=== PATIENT | female | born 1955 | race Caucasian/White ===

== ENCOUNTER 2018-05-14 20:30 | Inpatient (IN) | payer OTHER ==
[~2018-05-14] VITALS: Ht 160 cm; Wt 45.8 kg
[2018-05-14 20:51] LABS: BASOPHILS % (AUTO) 0.5 % (0.0-2.0); EOSINOPHILS % (AUTO) 2.3 % (1.0-6.0); HEMATOCRIT 37.3 % (36-46); HEMOGLOBIN 12.4 g/dL (12.0-16.0); LYMPHOCYTES # (AUTO) 1.7 K/uL (1.0-4.8); LYMPHOCYTES % (AUTO) 35.3 % (22.0-44.0); MEAN CORPUSCULAR HEMOGLOBIN 30.8 pg (26.0-34.0); MEAN CORPUSCULAR HGB CONC 33.2 G/dL (31.0-37.0); MEAN CORPUSCULAR VOLUME 93 fL (80-100); MONOCYTES # (AUTO) 0.5 K/uL (0.1-1.0); MONOCYTES % (AUTO) 10.6 % (2.0-9.0); NEUTROPHILS # (AUTO) 2.5 K/uL (1.8-7.7); NEUTROPHILS % (AUTO) 51.3 % (40.0-70.0); PLATELET COUNT (AUTO) 179 K/uL (150-450); RED BLOOD CELL COUNT(AUTO) 4.01 MIL/uL (4.00-5.20); RED CELL DISTRIBUTION WIDTH 12.4 % (11.5-14.5)
[2018-05-14] MEDS ORDERED: IOVERSOL 320 MG/ML 100 ML VIAL ONE (20:54)
[2018-05-14 21:04] LABS: ANION GAP 2 mmol/L (8-16); CALCIUM, TOTAL 9.2 mg/dL (8.8-10.5); CARBON DIOXIDE 35 mmol/L (22-29); CHLORIDE 105 mmol/L (98-107); CREATININE 0.66 mg/dL (0.60-1.30); GLOMERULAR FILTR. RATE CALC > 60 mL/min (>60); GLUCOSE,RANDOM 84 mg/dL (70-110); POTASSIUM 3.4 mmol/L (3.5-5.1); SODIUM SERUM 142 mmol/L (136-145); UREA NITROGEN, BLOOD 22 mg/dL (7-18)
[2018-05-14 21:06] LABS: INR 1.1 (0.9-1.1); PROTHROMBIN TIME 11.3 SEC (9.4-11.6)
[2018-05-14 21:10] LABS: ALANINE AMINOTRANSFERASE 18 U/L (12-78); ALBUMIN 3.3 g/dL (3.4-5.0); ALKALINE PHOSPHATASE 71 U/L (46-116); ASPARTATE AMINOTRANSFERASE 17 U/L (15-37); BILIRUBIN,TOTAL 0.2 mg/dL (0.1-1.0); CREATINE KINASE, TOTAL 62 U/L (26-192); TOTAL PROTEIN, SERUM 6.8 g/dL (6.4-8.2)
[2018-05-14 22:09] LABS: APPEARANCE,URINE CLEAR (CLEAR); BILIRUBIN,URINE NEGATIVE (NEGATIVE); GLUCOSE, URINE (UA) NEGATIVE (NEGATIVE); KETONES,URINE TRACE mg/dL (NEGATIVE); LEUKOCYTE ESTERASE ,URINE NEGATIVE (NEGATIVE); NITRATE,URINE NEGATIVE (NEGATIVE); OCCULT BLOOD,URINE NEGATIVE (NEGATIVE); PROTEIN,URINE TRACE (NEGATIVE)
[2018-05-14] MEDS ORDERED: 0.9% SODIUM CHLORIDE 10 ML SYRINGE IVP PRN (23:45)
[2018-05-14] MEDS ORDERED: ACETAMINOPHEN 325 MG TABLET PO PRN (23:45)
[2018-05-14] MEDS ORDERED: ONDANSETRON HCL 4 MG/2 ML VIAL IVP PRN (23:45)
[2018-05-15] MEDS ORDERED: ASPIRIN 325 MG TABLET PO ONE
[2018-05-15] MEDS ORDERED: POTASSIUM CHLORIDE 10% 40 MEQ/30 ML LIQUID UDCUP PO ONE
[2018-05-15] MEDS ORDERED: ACETAMINOPHEN 325 MG TABLET PO PRN (05:00)
[2018-05-15] MEDS ORDERED: ONDANSETRON HCL 4 MG/2 ML VIAL IVP PRN (05:00)
[2018-05-15] MEDS ORDERED: BISACODYL 10 MG RECTAL RECTAL SUPPOSITORY PR PRN (05:00)
[2018-05-15 06:56] LABS: BASOPHILS % (AUTO) 0.7 % (0.0-2.0); EOSINOPHILS % (AUTO) 3.9 % (1.0-6.0); HEMATOCRIT 39.1 % (36-46); HEMOGLOBIN 13.3 g/dL (12.0-16.0); LYMPHOCYTES # (AUTO) 1.7 K/uL (1.0-4.8); LYMPHOCYTES % (AUTO) 42.4 % (22.0-44.0); MEAN CORPUSCULAR HEMOGLOBIN 31.3 pg (26.0-34.0); MEAN CORPUSCULAR VOLUME 92 fL (80-100); MONOCYTES # (AUTO) 0.4 K/uL (0.1-1.0); NEUTROPHILS # (AUTO) 1.8 K/uL (1.8-7.7); PLATELET COUNT (AUTO) 160 K/uL (150-450); RED BLOOD CELL COUNT(AUTO) 4.24 MIL/uL (4.00-5.20); RED CELL DISTRIBUTION WIDTH 12.7 % (11.5-14.5)
[2018-05-15 07:04] LABS: ALANINE AMINOTRANSFERASE 15 U/L (12-78); ALBUMIN 3.3 g/dL (3.4-5.0); ALKALINE PHOSPHATASE 67 U/L (46-116); ANION GAP 4 mmol/L (8-16); ASPARTATE AMINOTRANSFERASE 16 U/L (15-37); BILIRUBIN,TOTAL 0.3 mg/dL (0.1-1.0); CALCIUM, TOTAL 8.9 mg/dL (8.8-10.5); CARBON DIOXIDE 33 mmol/L (22-29); CHLORIDE 107 mmol/L (98-107); CHOLESTEROL 181 mg/dL (131-200); CREATININE 0.66 mg/dL (0.60-1.30); FREE T4 (FREE THYROXINE) 1.02 ng/dL (0.76-1.46); GLOMERULAR FILTR. RATE CALC > 60 mL/min (>60); GLUCOSE,RANDOM 80 mg/dL (70-110); HDL CHOLESTEROL 60 mg/dL (40-60); LDL CHOL (CALC.) 105 mg/dL (0-130); PHOSPHORUS 3.9 mg/dL (2.5-4.9); POTASSIUM 4.3 mmol/L (3.5-5.1); SODIUM SERUM 144 mmol/L (136-145); THYROID STIMULATING HORMONE 1.07 uIU/mL (0.36-3.74); TOTAL PROTEIN, SERUM 6.7 g/dL (6.4-8.2); TRIGLYCERIDES 79 mg/dL (15-150); UREA NITROGEN, BLOOD 19 mg/dL (7-18)
[2018-05-15] MEDS ORDERED: HEPARIN SODIUM,PORCINE 5,000 UNITS/ML VIAL SQ SCH (09:00)
[2018-05-15 11:15] VITALS: BP 143/65
[2018-05-15] MEDS: ASPIRIN 81 MG CHEWABLE TABLET PO SCH (11:59)
[2018-05-15] MEDS: PANTOPRAZOLE SODIUM 40 MG DR TABLET PO SCH (11:59)
[2018-05-15 15:25] VITALS: BP 102/60
[2018-05-15 20:03] VITALS: BP 112/64
[2018-05-15] MEDS: CARBIDOPA/LEVODOPA 25-100 MG TABLET PO SCH (21:10)
[2018-05-15] MEDS: ATORVASTATIN CALCIUM 40 MG TABLET PO SCH (21:10)
[2018-05-15 23:35] VITALS: BP 119/58
[2018-05-16 05:04] VITALS: BP 115/62
[2018-05-16 07:00] LABS: BASOPHILS % (AUTO) 0.6 % (0.0-2.0); EOSINOPHILS % (AUTO) 2.9 % (1.0-6.0); HEMATOCRIT 37.6 % (36-46); HEMOGLOBIN 12.7 g/dL (12.0-16.0); LYMPHOCYTES # (AUTO) 2.1 K/uL (1.0-4.8); LYMPHOCYTES % (AUTO) 36.7 % (22.0-44.0); MEAN CORPUSCULAR HEMOGLOBIN 31.1 pg (26.0-34.0); MEAN CORPUSCULAR HGB CONC 33.7 G/dL (31.0-37.0); MEAN CORPUSCULAR VOLUME 92 fL (80-100); MONOCYTES # (AUTO) 0.5 K/uL (0.1-1.0); MONOCYTES % (AUTO) 8.6 % (2.0-9.0); NEUTROPHILS % (AUTO) 51.2 % (40.0-70.0); PLATELET COUNT (AUTO) 165 K/uL (150-450); RED BLOOD CELL COUNT(AUTO) 4.08 MIL/uL (4.00-5.20); RED CELL DISTRIBUTION WIDTH 12.4 % (11.5-14.5)
[2018-05-16 07:09] LABS: ANION GAP 1 mmol/L (8-16); CALCIUM, TOTAL 8.6 mg/dL (8.8-10.5); CARBON DIOXIDE 33 mmol/L (22-29); CHLORIDE 103 mmol/L (98-107); CREATININE 0.61 mg/dL (0.60-1.30); GLOMERULAR FILTR. RATE CALC > 60 mL/min (>60); GLUCOSE,RANDOM 82 mg/dL (70-110); POTASSIUM 4.5 mmol/L (3.5-5.1); SODIUM SERUM 137 mmol/L (136-145); UREA NITROGEN, BLOOD 22 mg/dL (7-18)
[2018-05-16 07:43] VITALS: BP 124/76
[2018-05-16] MEDS: ASPIRIN 81 MG CHEWABLE TABLET PO SCH (08:21)
[2018-05-16] MEDS: PANTOPRAZOLE SODIUM 40 MG DR TABLET PO SCH (08:21)
[2018-05-16] MEDS: CARBIDOPA/LEVODOPA 25-100 MG TABLET PO SCH ×2 (08:22→20:32)
[2018-05-16 11:39] VITALS: BP 117/62
[2018-05-16 15:20] VITALS: BP 105/49
[2018-05-16 19:35] VITALS: BP 108/58
[2018-05-16] MEDS: ATORVASTATIN CALCIUM 40 MG TABLET PO SCH (20:32)
[2018-05-16 23:52] VITALS: BP 123/74
[2018-05-17 03:55] VITALS: BP 114/65
[2018-05-17 07:13] VITALS: BP 139/63
[2018-05-17] MEDS: CARBIDOPA/LEVODOPA 25-100 MG TABLET PO SCH (08:12)
[2018-05-17] MEDS: ASPIRIN 81 MG CHEWABLE TABLET PO SCH (08:12)
[2018-05-17] MEDS: PANTOPRAZOLE SODIUM 40 MG DR TABLET PO SCH (08:12)
[2018-05-17] MEDS ORDERED: ASPI-1182 PO (11:42)
[2018-05-17] MEDS ORDERED: ATOR40TA28 PO (11:43)
[2018-05-17] MEDS ORDERED: CARB1TAB35 PO (11:43)
[2018-05-17 11:48] VITALS: BP 111/59
[2018-05-17 14:46] VITALS: BP 124/66
== END 2018-05-17 17:15 | disposition home or self-care (01) | DRG 47 ==
LOC: EMS 20:31 → 5S 05-15 08:40
PROVIDERS: ADMIT Internal Medicine; ATTEND Internal Medicine
DX: G45.9 Transient cerebral ischemic attack, unspecified (principal); G20 Parkinson's disease; E87.6 Hypokalemia; Z79.82 Long term (current) use of aspirin; Z85.41 Personal history of malignant neoplasm of cervix uteri; Z86.79 Personal history of other diseases of the circulatory system; Z87.891 Personal history of nicotine dependence
CPT/HCPCS: 51702; 70496; 83735; 84100; 84439; 84443; 92523; 93005; 93306; 93880; 97162; 97166; 97530; 97535; 99291